=== PATIENT | male | born 1995 ===

== ENCOUNTER 2018-05-11 15:58 | Emergency (ER) | payer SELFPAY ==
[2018-05-11 16:16] VITALS: TEMP 98.9; O2SAT 99
[2018-05-11 17:03] LABS: BASO % 0.3 % (0.0-2.0); EOS % 0.6 % (0.0-4.0); HEMOGLOBIN 15.2 g/dL (12.0-18.0); LYMPH # 2.1 K/uL (1.0-4.3); LYMPH % 23.7 % (20.0-40.0); MEAN CELL VOLUME 91.5 fl (80.0-94.0); MEAN CORPUSCULAR HEMOGLOBIN 30.7 pg (27.0-31.0); MEAN CORPUSCULAR HGB CONC 33.6 g/dL (33.0-37.0); MEAN PLATELET VOLUME 8.4 fl (7.2-11.7); MONO # 0.6 K/uL (0.0-0.8); MONO % 7.2 % (0.0-10.0); NEUT % 68.2 % (50.0-75.0); NRBC % 0.1 % (0.0-0.0); RBC 4.94 Mil/uL (4.40-5.90); RED CELL DISTRIBUTION WIDTH 13.4 % (11.5-14.5); WHITE BLOOD COUNT 8.8 K/uL (4.8-10.8)
[2018-05-11 17:16] LABS: ALB/GLOB RATIO 1.4 (1.0-2.1); ALBUMIN 4.7 g/dL (3.5-5.0); ALT/SGPT 33 U/L (21-72); AST/SGOT 38 U/L (17-59); BLOOD UREA NITROGEN 15 mg/dl (9-20); CALCIUM 9.3 mg/dL (8.4-10.2); GFR NON-AFRICAN AMERICAN > 60
--- NOTE | 2018-05-11 17:16 | ED PDOC ---
HPI: General Adult Time Seen by Provider: 05/11/18 16:21 Chief Complaint (Nursing): GI Problem Chief Complaint (Provider): Hemoptysis History Per: Patient History/Exam Limitations: no limitations Onset/Duration Of Symptoms: Days (x3 months) Current Symptoms Are (Timing): Still Present Additional Complaint(s): 23 year old male presents to the ED for evaluation of hemoptysis for the past three months associated with intermittent chest tightness and night sweats. Patient reports that since onset, he has been having almost daily episodes where he feels like he needs to spit, and then blood comes up. He notes the amount of blood has been increasing with clots. Additionally, patient states he has been having increasing rectal bleeding almost daily since onset as well, associated with diarrhea 3-5x daily, noticing blood when he wipes and in the toilet. Intermittently, he also is reporting nose bleeds. Otherwise, denies cough, shortness of breath, abdominal pain, appetite changes, weight loss, dental bleeding, and excessive bleeding from wounds. He presents today because the amount of blood he spit up today at work was more than usual. PMD: none provided Past Medical History Reviewed: Historical Data, Nursing Documentation, Vital Signs Vital Signs: Last Vital Signs Temp 98.9 F 05/11/18 16:13 Pulse 66 05/11/18 16:13 Resp 16 05/11/18 16:13 BP 146/81 05/11/18 16:13 Pulse Ox 99 05/11/18 16:13 - Medical History PMH: No Chronic Diseases - Surgical History Surgical History: No Surg Hx - Family History Family History: States: Unknown Family Hx - Social History Current smoker - smoking cessation education provided: Yes Alcohol: Occasional Drugs: Cannabis (occasional) - Home Medications Home Medications: Ambulatory Orders Medication Instructions Recorded Fluticasone Propionate [Flonase] 1 spr NS DAILY #1 bot 05/11/18 - Allergies Allergies/Adverse Reactions: Allergies Allergy/AdvReac Type Severity Reaction Status Date / Time No Known Allergies Allergy Verified 05/11/18 16:16 Review of Systems ROS Statement: Except As Marked, All Systems Reviewed And Found Negative Constitutional: Positive for: Sweats (at night) ENT: Positive for: Other (nose bleeds; no dental bleeding) Cardiovascular: Positive for: Chest Pain (tightness) Respiratory: Positive for: Hemoptysis. Negative for: Cough, Shortness of Breath Gastrointestinal: Positive for: Diarrhea (3-5x daily, bloody), Other (rectal bleeding). Negative for: Abdominal Pain Physical Exam - Reviewed Nursing Documentation Reviewed: Yes Vital Signs Reviewed: Yes - Physical Exam Appears: Positive for: No Acute Distress (well nourished, well developed) Head Exam: Positive for: ATRAUMATIC, NORMOCEPHALIC Skin: Positive for: Normal Color (but with small areas of scaling consistent with mild psoriasis), Warm, Dry. Negative for: Pallor Eye Exam: Positive for: EOMI, PERRL ENT: Positive for: Pharynx Is (clear, no visible blood), Other (bilateral nares with no dried blood, no active bleeding) Neck: Positive for: Painless ROM, Supple Cardiovascular/Chest: Positive for: Regular Rate, Rhythm. Negative for: Murmur Respiratory: Positive for: Normal Breath Sounds. Negative for: Crackles, Rales, Rhonchi, Respiratory Distress Gastrointestinal/Abdominal: Positive for: Normal Exam, Soft. Negative for: Tenderness, Mass, Guarding, Rebound Back: Positive for: Normal Inspection. Negative for: Muscle Spasm Rectal: Positive for: Normal Exam (normal external: no visible hemorrhoids or blood; normal digital exam: no masses or blood) Lymphatic: Negative for: Adenopathy Neurologic/Psych: Positive for: Alert. 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: [facility] Results Result Diagrams: 05/11/18 16:50 05/11/18 16:50 - ECG O2 Sat by Pulse Oximetry: 99 (RA) Pulse Ox Interpretation: Normal Medical Decision Making Medical Decision Making: Time: 1637 Initial Impression: hemoptysis and rectal bleeding with benign exam DDx includes but is not limited to: sinusitis/rhinitis, coagulopathy, thrombocytopenia, pneumonia, inflammatory bowel disease, anemia Initial Plan: --Type and screen --CMP --U-dip --CBC with differential --PTT / PT --CXR --Occult blood, stool, ER 1710 CXR FINDINGS: LINES AND TUBES: None. LUNG AND PLEURA: The lungs are well inflated and clear. No pleural effusion or pneumothorax. HEART AND MEDIASTINUM: The heart is not enlarged. No aortic atherosclerotic calcification present. The hilar and mediastinal contours are within normal limits. SKELETAL STRUCTURES: The bony structures are within normal limits for the patient's age. VISUALIZED UPPER ABDOMEN: Normal. OTHER FINDINGS: None. IMPRESSION: No active pulmonary disease. 1820 Labs reviewed with unremarkable results. DW pt findings. Will treat as possible rhinitis, but advised needs to continue workup outpatient, especially for rectal bleeding. Patient stable for discharge to follow up as an outpatient with his PMD. Scribe Attestation: Documented by Eva Urbano, acting as a scribe for Shi Simpson MD. Provider Scribe Attestation: All medical record entries made by the Scribe were at my direction and personally dictated by me. I have reviewed the chart and agree that the record accurately reflects my personal performance of the history, physical exam, medical decision making, and the department course for this patient. I have also personally directed, reviewed, and agree with the discharge instructions and disposition. Disposition - Clinical Impression Clinical Impression: Hemoptysis, Rectal bleeding - Disposition Referrals: [facility] [Outside] (FOLLOW UP WITH CLINIC IN 1-2 WEEKS TO SEE HOW YOU ARE DOING.) Disposition: Routine/Home Disposition Time: 18:00 Condition: STABLE Prescriptions: Fluticasone Propionate [Flonase] 1 spr NS DAILY #1 bot Instructions: Seasonal Allergies (DC), Coughing up Blood, Bloody Stools, Adult (DC) Forms: [facility] ED School/Work Excuse
[2018-05-11 17:22] LABS: PROTHROMBIN TIME 11.1 Seconds (9.8-13.1)
[2018-05-11 17:25] LABS: PARTIAL THROMBOPLASTIN TIME 30.2 Seconds (25.6-37.1)
[2018-05-11 18:33] VITALS: BP 123/76; PULSE 73; RESP 18
== END 2018-05-11 18:49 | disposition home or self-care (01) ==
LOC: H.ER 15:58
DX: R04.2 Hemoptysis (principal); K62.5 Hemorrhage of anus and rectum
CPT/HCPCS: 71046; 80053; 85025; 85610; 85730; 86850; 86900; 99284; G0328